=== PATIENT | male | born 1955 | race Caucasian/White ===

== ENCOUNTER 2023-05-06 09:04 | Inpatient (IN) | payer OTHER ==
[2023-05-06] MEDS ORDERED: Nitroglycerin 2% Ointment 1 INCH/1 GM Packet ONE (09:41)
[2023-05-06 09:55] LABS: #Eosinphils 0.1 10x3/uL (0.0-0.5); #Monocytes 0.4 10x3/uL (0.0-1.1); #Neutrophils 4.1 10x3/uL (1.5-8.4); %Basophils 0.4 % (0.0-2.0); %Eosinophils 1.8 % (0.0-6.0); %Lymphocytes 7.7 % (18.0-47.0); %Monocytes 7.7 % (0.0-10.0); %Neutrophils 82.2 % (40.0-75.0); Hematocrit 40.5 % (38.8-50.0); Hemoglobin 14.2 g/dL (13.5-17.5); Mean Corpuscular HGB CONC 35.1 g/dL (32.0-36.0); Mean Corpuscular Hemoglobin 34.1 pg (27.0-33.0); Mean Corpuscular Volume 97.4 fl (81.2-95.1); Mean Platelet Volume 9.6 fl (7.4-10.4); Platelet Count 175 10x3/uL (150-450); RBC Distribution Width 14.4 % (11.5-14.5); Red Blood Cell (RBC) Count 4.16 10x6/uL (4.32-5.72)
[2023-05-06 10:26] LABS: Troponin I 0.185 ng/mL (< 0.028)
[2023-05-06] MEDS ORDERED: fentaNYL 50 mcg/mL 1 mL Vial ONE (11:20)
[2023-05-06 11:51] LABS: ALT (SGPT) 9 U/L (8-55); AST (SGOT) 16 U/L (5-34); Albumin 3.3 g/dL (3.4-4.8); Alkaline Phosphatase 64 U/L (40-110); Anion Gap 12 mmol/L (10-20); BUN (Urea Nitrogen) 8 mg/dL (8.4-25.7); Bilirubin, Total 0.9 mg/dL (0.2-1.2); Calc. Creatinine Clearance 0 mL/min (70-130); Calcium 8.1 mg/dL (7.8-10.44); Carbon Dioxide 19 mmol/L (23-31); Chloride 104 mmol/L (98-107); Estimated GFR 97; Globulin 2.5 g/dL (2.4-3.5); Glucose 116 mg/dL (80-115); Lipase 24 U/L (8-78); Potassium 3.8 mmol/L (3.5-5.1); Protein, Total 5.8 g/dL (5.8-8.1); Sodium 131 mmol/L (136-145)
[2023-05-06] MEDS ORDERED: Ondansetron ODT 4 MG TAB PO PRN (12:19)
[2023-05-06] MEDS ORDERED: Acetaminophen 325 MG TAB PO PRN (12:19)
[2023-05-06] MEDS ORDERED: Nitroglycerin 0.4 MG TAB (25 Tab Bottle) SL PRN (12:19)
[2023-05-06] MEDS ORDERED: Senokot S 8.6-50 MG TAB PO PRN (12:19)
[2023-05-06 12:47] LABS: Critical Call Chem Troponin I AT 1247 ERS.LB3; Troponin I 0.425 ng/mL (< 0.028)
[2023-05-06] MEDS ORDERED: Enoxaparin 80 MG (0.8 mL) SYRINGE ONE (12:58)
[2023-05-06 16:44] LABS: Critical Call Chem Troponin I NUR.TF1@1644; Troponin I 0.332 ng/mL (< 0.028)
[2023-05-06 16:55] LABS: Magnesium 1.8 mg/dL (1.6-2.6)
[2023-05-06 18:12] VITALS: BMI 26.9
[2023-05-06 18:49] LABS: Troponin I 0.298 ng/mL (< 0.028)
[2023-05-06] MEDS: Nitroglycerin 2% Ointment 1 INCH/1 GM Packet TOP SCH (21:49)
[2023-05-06] MEDS: Famotidine 20 MG TAB PO SCH (21:49)
[2023-05-06] MEDS: Enoxaparin 80 MG (0.8 mL) SYRINGE SC SCH (21:57)
[2023-05-07] MEDS ORDERED: Enoxaparin 80 MG (0.8 mL) SYRINGE SC SCH (01:00)
[2023-05-07 04:16] LABS: Anion Gap 12 mmol/L (10-20); BUN (Urea Nitrogen) 9 mg/dL (8.4-25.7); Calc. Creatinine Clearance 107 mL/min (70-130); Carbon Dioxide 22 mmol/L (23-31); Chloride 106 mmol/L (98-107); Estimated GFR 98; Glucose 82 mg/dL (80-115); Potassium 3.7 mmol/L (3.5-5.1); Sodium 136 mmol/L (136-145)
[2023-05-07] MEDS ORDERED: Enoxaparin 40 MG (0.4 mL) SYRINGE SC SCH (09:00)
[2023-05-07] MEDS: Aspirin Chewable 81 MG TAB PO SCH (09:25)
[2023-05-07] MEDS: Losartan 25 MG TAB PO SCH (10:25)
[2023-05-07] MEDS: Metoprolol Tartrate 25 MG TAB PO SCH (20:25)
[2023-05-08] MEDS: Losartan 25 MG TAB PO SCH (09:00)
[2023-05-08] MEDS: Atorvastatin Calcium 40 MG TAB PO SCH (20:19)
[2023-05-09 03:05] LABS: #Eosinphils 0.1 10x3/uL (0.0-0.5); #Monocytes 0.4 10x3/uL (0.0-1.1); #Neutrophils 3.1 10x3/uL (1.5-8.4); %Basophils 0.2 % (0.0-2.0); %Lymphocytes 19.3 % (18.0-47.0); %Monocytes 9.6 % (0.0-10.0); %Neutrophils 67.7 % (40.0-75.0); Hematocrit 39.6 % (38.8-50.0); Hemoglobin 14.1 g/dL (13.5-17.5); Mean Corpuscular HGB CONC 35.6 g/dL (32.0-36.0); Mean Corpuscular Hemoglobin 33.5 pg (27.0-33.0); Mean Corpuscular Volume 94.1 fl (81.2-95.1); Mean Platelet Volume 9.6 fl (7.4-10.4); Platelet Count 184 10x3/uL (150-450); RBC Distribution Width 14.5 % (11.5-14.5); Red Blood Cell (RBC) Count 4.21 10x6/uL (4.32-5.72); White Blood Cell (WBC) Count 4.6 10x3/uL (3.5-10.5)
[2023-05-09 03:54] LABS: Anion Gap 12 mmol/L (10-20); BUN (Urea Nitrogen) 10 mg/dL (8.4-25.7); Calc. Creatinine Clearance 112 mL/min (70-130); Calcium 8.3 mg/dL (7.8-10.44); Carbon Dioxide 21 mmol/L (23-31); Cardiac Risk 2.9 (Less than 4.5); Chloride 104 mmol/L (98-107); Cholesterol 127 mg/dl (< 200 Desired); Estimated GFR 99; Glucose 111 mg/dL (80-115); HDL Cholesterol 44 mg/dL (>60 Neg Risk); LDL Cholesterol, Calculated 68 mg/dL; Potassium 3.4 mmol/L (3.5-5.1); Sodium 134 mmol/L (136-145); Triglycerides 74 mg/dL (Less than 150)
[2023-05-09] MEDS: Potassium Chloride 20 MEQ TAB PO SCH (09:34)
[2023-05-09] MEDS: Magnesium 2 GM/50 ML(in water) 2 GM in Premix 1 BAG IVPB SCH (09:35)
[2023-05-09] MEDS: Enoxaparin 80 MG (0.8 mL) SYRINGE SC SCH (10:48)
[2023-05-09] MEDS: Spironolactone 25 MG TAB PO SCH (13:33)
[2023-05-10 04:27] LABS: #Eosinphils 0.2 10x3/uL (0.0-0.5); #Monocytes 0.5 10x3/uL (0.0-1.1); #Neutrophils 2.9 10x3/uL (1.5-8.4); %Basophils 0.2 % (0.0-2.0); %Eosinophils 3.7 % (0.0-6.0); %Lymphocytes 21.3 % (18.0-47.0); %Monocytes 11.1 % (0.0-10.0); %Neutrophils 63.3 % (40.0-75.0); Hematocrit 38.3 % (38.8-50.0); Hemoglobin 13.6 g/dL (13.5-17.5); Mean Corpuscular HGB CONC 35.5 g/dL (32.0-36.0); Mean Corpuscular Hemoglobin 33.5 pg (27.0-33.0); Mean Corpuscular Volume 94.3 fl (81.2-95.1); Mean Platelet Volume 9.9 fl (7.4-10.4); Platelet Count 191 10x3/uL (150-450); RBC Distribution Width 14.6 % (11.5-14.5); Red Blood Cell (RBC) Count 4.06 10x6/uL (4.32-5.72); White Blood Cell (WBC) Count 4.6 10x3/uL (3.5-10.5)
[2023-05-10 04:30] LABS: Anion Gap 10 mmol/L (10-20); BUN (Urea Nitrogen) 12 mg/dL (8.4-25.7); Calc. Creatinine Clearance 107 mL/min (70-130); Calcium 8.1 mg/dL (7.8-10.44); Carbon Dioxide 23 mmol/L (23-31); Chloride 105 mmol/L (98-107); Estimated GFR 98; Glucose 118 mg/dL (80-115); Potassium 3.6 mmol/L (3.5-5.1); Sodium 134 mmol/L (136-145)
[2023-05-10] MEDS: Aspirin Chewable 81 MG TAB PO SCH (05:44)
[2023-05-10] MEDS: Metoprolol Tartrate 25 MG TAB PO SCH ×2 (05:44→21:06)
[2023-05-10] MEDS: Spironolactone 25 MG TAB PO SCH (09:09)
[2023-05-10] MEDS: Empagliflozin 10 MG TAB PO SCH (09:09)
[2023-05-10] MEDS ORDERED: Adenosine 6 mg (2 mL) VIAL ONE (09:12)
[2023-05-10] MEDS ORDERED: Lidocaine 1% (PF) 30 ML VIAL ONE (09:12)
[2023-05-10] MEDS ORDERED: Atropine Sulfate 1 mg/1 ml Vial ONE (09:12)
[2023-05-10] MEDS ORDERED: Midazolam HCl 2 mg/2 ml Vial ONE (09:12)
[2023-05-10] MEDS ORDERED: fentaNYL 50 mcg/mL 1 mL Vial ONE (09:12)
[2023-05-10] MEDS ORDERED: Nitroglycerin 50 MG/250 ML BOT 0 ML ONE (09:12)
[2023-05-10] MEDS ORDERED: Heparin 10,000 UNITS/ 10 ML VIAL ONE (09:12)
[2023-05-10] MEDS ORDERED: Sodium Chloride 0.9% 200 ML IV PRN (12:17)
[2023-05-10] MEDS ORDERED: Nitroglycerin 0.4 MG TAB (25 Tab Bottle) SL PRN (12:17)
[2023-05-10] MEDS ORDERED: Acetaminophen/Codeine 30-300mg Tablet PO PRN ×2 (12:17)
[2023-05-10] MEDS ORDERED: Clopidogrel Bisulfate 300 MG TAB ONE (12:17)
[2023-05-10] MEDS ORDERED: Iopamidol 300 61% 100 ML VIAL FS ONE (12:41)
[2023-05-10] MEDS: Sodium Chloride 0.9% 1,000 ML IV SCH (16:33)
[2023-05-11 04:17] LABS: Anion Gap 12 mmol/L (10-20); BUN (Urea Nitrogen) 9 mg/dL (8.4-25.7); Calc. Creatinine Clearance 127 mL/min (70-130); Calcium 8.3 mg/dL (7.8-10.44); Carbon Dioxide 20 mmol/L (23-31); Chloride 107 mmol/L (98-107); Estimated GFR 103; Glucose 91 mg/dL (80-115); Potassium 3.8 mmol/L (3.5-5.1); Sodium 135 mmol/L (136-145)
[2023-05-11 04:26] LABS: #Eosinphils 0.2 10x3/uL (0.0-0.5); #Monocytes 0.6 10x3/uL (0.0-1.1); #Neutrophils 3.1 10x3/uL (1.5-8.4); %Basophils 0.4 % (0.0-2.0); %Eosinophils 3.2 % (0.0-6.0); %Monocytes 12.1 % (0.0-10.0); %Neutrophils 63.1 % (40.0-75.0); Hematocrit 40.4 % (38.8-50.0); Mean Corpuscular HGB CONC 34.7 g/dL (32.0-36.0); Mean Corpuscular Hemoglobin 33.3 pg (27.0-33.0); Mean Platelet Volume 9.6 fl (7.4-10.4); Platelet Count 180 10x3/uL (150-450); RBC Distribution Width 14.6 % (11.5-14.5); Red Blood Cell (RBC) Count 4.21 10x6/uL (4.32-5.72)
[2023-05-11] MEDS: Aspirin Chewable 81 MG TAB PO SCH (10:02)
[2023-05-11] MEDS: Clopidogrel Bisulfate 75 MG TAB PO SCH (10:02)
[2023-05-11] MEDS: Potassium Chloride 20 MEQ TAB PO SCH (11:52)
[2023-05-11 13:02] VITALS: BP 141/70; TEMP 98.5
[2023-05-11] MEDS: Carvedilol 3.125 MG TAB PO SCH (18:11)
== END 2023-05-11 18:14 | DRG 325 ==
LOC: EEVIPCON 09:04 → CSHERS 09:04 → CSHTELE 12:35 → OBSVTOIN 05-07 13:44
PROVIDERS: ADMIT Internal Medicine; ATTEND Hospitalist
PROC: 02F03ZZ Fragmentation in Coronary Artery, One Artery, Percutaneous Approach (ICD-10-PCS; principal; 2023-05-10)
PROC: 4A023N7 Measurement of Cardiac Sampling and Pressure, Left Heart, Percutaneous Approach (ICD-10-PCS; 2023-05-10)
PROC: B2151ZZ Fluoroscopy of Left Heart using Low Osmolar Contrast (ICD-10-PCS; 2023-05-10)
PROC: B2111ZZ Fluoroscopy of Multiple Coronary Arteries using Low Osmolar Contrast (ICD-10-PCS; 2023-05-10)
DX: I11.0 Hypertensive heart disease with heart failure (principal); I50.43 Acute on chronic combined systolic (congestive) and diastolic (congestive) heart failure; I21.4 Non-ST elevation (NSTEMI) myocardial infarction; I24.9 Acute ischemic heart disease, unspecified; I82.813 Embolism and thrombosis of superficial veins of lower extremities, bilateral; I25.10 Atherosclerotic heart disease of native coronary artery without angina pectoris; I73.9 Peripheral vascular disease, unspecified; E78.5 Hyperlipidemia, unspecified; I95.9 Hypotension, unspecified; J44.9 Chronic obstructive pulmonary disease, unspecified; I44.7 Left bundle-branch block, unspecified; Z79.890 Hormone replacement therapy; Z79.899 Other long term (current) drug therapy; Z95.1 Presence of aortocoronary bypass graft; Z98.890 Other specified postprocedural states; Z82.49 Family history of ischemic heart disease and other diseases of the circulatory system; Z87.891 Personal history of nicotine dependence
CPT/HCPCS: 36245; 36415; 71045; 75716; 75736; 80048; 80053; 80061; 83690; 83735; 83880; 84484; 85025; 92920; 92972; 93005; 93010; 93306; 93459; 94760; 96372; 96374; 99152; 99153; C1760; C1761; C1769; C1887; G0378; J0153; J0461; J1644; J1650; J2001; J2250; J3010; J3475; J7050; Q9967